=== PATIENT | male | born 1950 | race Caucasian/White ===

== ENCOUNTER 2020-03-30 15:13 | Outpatient (CLI) | payer MEDICARE, SELFPAY ==
--- NOTE | 2020-03-30 15:28 | MR_ITS ---
WS: [id number] MRI LUMBAR SPINE NONCONTRAST HISTORY: LOW BACK PAIN COMPARISON: None available. TECHNIQUE: Sagittal and axial multisequence imaging is submitted. 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 There is contac t on the cord at several levels. Narrowing of the disc spaces in the lower thoracic spine anterior br idging osteophytes. Increase in the lumbar lordosis. There is a mild S-shaped curvature of the lumbar spine. Disc desiccation throughout the lumbar spine. No marrow edema or acute fracture. Conus terminates normally at L1-2 disc level. L1-L2: Mild annular disc bulging and facet arthritis. Small amount of fluid in the facet joints. No s ignificant stenosis. L2-L3: Marked facet joint arthritis and ligamentum flavum hypertrophy annular disc bulging and osteop hytic ridging. Severe central stenosis. There is also severe bilateral subarticular stenosis and RIGH T foraminal stenosis. Moderate LEFT foraminal stenosis. L3-L4: Severe facet joint arthritis with ligamentum flavum arthritis. Annular disc bulging and osteop hytic ridging. LEFT paracentral and subarticular recess disc protrusion with extension into the callie en. There is a disc osteophyte centrally. These findings are contributing to severe central stenosis with severe subarticular recess and moderate bilateral foraminal stenosis. L4-L5: Marked facet joint arthritis and ligamentum flavum hypertrophy. Annular disc bulging and osteo phytic ridging. Moderate central stenosis with mild bilateral subarticular recess and foraminal steno sis. L5-S1: Facet joint arthritis. Asymmetric disc bulging with disc osteophyte in the LEFT paracentral re gion extending into the foramen. Mild encroachment upon the subarticular recesses and proximal forami na. Incompletely visualized LEFT renal cyst. The largest measures 4.3 cm. MR/MR lumbar spine wo con* [id number] IMPRESSION: 1. Severe multifactorial, multilevel stenoses in the lumbar spine. 2. Severe central, bilateral subarticular recess and moderate foraminal stenos is at L3-4. 3. Most significant stenosis at L3-4 with disc protrusions centrally extending into the LEFT subarticular recess. 4. Moderate central stenosis with mild bilateral subarticular recess and callie inal stenosis at L4-5. 5. Severe central stenosis at L2-3 with severe bilateral subarticular recess s tenosis and RIGHT foraminal stenosis. Moderate LEFT foraminal stenosis.
--- NOTE | 2020-03-30 15:28 | XR_ITS ---
WS: [id number] LATERAL LUMBAR SPINE: 3 view. Lateral radiographs are performed in upright neutral, flexion and extension to the patient's toleranc e. HISTORY: LOW BACK PAIN COMPARISON: None available. Slight increase in lumbar lordosis. 3 mm retrolisthesis of L1, L2 and L3. With flexion and extension the retrolisthesis does not change. Severe facet joint arthritis at L4-5 and L5-S1. Mild disc space narrowing throughout the lumbar spine most significant at L3-4. XR/XR lumbar spine f/e only [id number] IMPRESSION: 1. Retrolisthesis of L1, L2 and L3 by 3 mm. 2. No lumbar spine instability. 3. Facet joint arthritis at L4-5 and L5-S1 is severe.
== END 2020-03-30 15:14 | disposition home or self-care (01) ==
PROVIDERS: Visit Provider Nurse Practitioner
DX: M46.86 Other specified inflammatory spondylopathies, lumbar region (principal); M48.061 Spinal stenosis, lumbar region without neurogenic claudication; M51.26 Other intervertebral disc displacement, lumbar region
CPT/HCPCS: 72120; 72148